=== PATIENT | female | born 1990 | race Caucasian/White ===

== ENCOUNTER 2017-07-01 02:03 | Outpatient (CLI) | payer MEDICAID ==
[~2017-07-01] VITALS: Ht 154.9 cm; Wt 82.1 kg
[~2017-07-01 02:03] MED LIST: ADIPEX-P37.5 MG PO; AMOXICOT500 MG PO; BIRTH CONTROL; CEFDINIR300 M1 PO; CEPHALEXIN500 MG PO; HAIR VITAMINS E1 TAB PO; IBUPROFEN400 MG PO; MACROBID 100MG100 MG PO; MOTRIN400 MG PO; NIFEDIPINE XL 330 MG PO; NOMEDS; NOMEDS *; PERCOCET 5/3251 EACH PO; PHENERGAN 25MG.25 M1 PO; PRENATAL PLUS1 TA1 PO; PRENATAL1 TA1 PO; PRENATAL1 TA3 PO; SERTRALINE 100100 MG PO; TAMIFLU 75MG CA75 MG PO; TESSALON PERLE100 M1 PO; VITAMIN C500 M1 PO; VITAMIN D1000 IU PO; ZANTAC 150150 MG PO; ZOFRAN4 MG PO
[2017-07-01 02:20] VITALS: BP 129/69
[2017-07-01 02:50] LABS: URINE BILIRUBIN - DIPSTICK NEGATIVE (NEG); URINE BLOOD NEGATIVE (NEG)
[2017-07-01 02:58] LABS: URINE SQUAMOUS CELLS OCC #/hpf (0-5)
[2017-07-01 02:59] LABS: AMPHETAMINES/METAMPHETAMINES NEGATIVE ng/mL (<1000)
== END 2017-07-01 04:00 ==
LOC: OB 02:03 → OBOUT 02:03 → OB 02:05 → OBOUT 04:00
PROVIDERS: Obstetrics & Gynecology
DX: O60.02 Preterm labor without delivery, second trimester (principal); Z3A.25 25 weeks gestation of pregnancy; M54.5 Low back pain

== ENCOUNTER → 2017-08-23 | Outpatient (CLI) | payer MEDICAID ==
[2017-08-25 08:49] LABS: HSV 1 IgG, Type Spec <0.91 index (0.00-0.90); HSV 2 IgG, Type Spec <0.91 index (0.00-0.90); Rapid Plasma Reagin, Quant Non Reactive (NonRea<1:1)
[2017-08-25 09:38] LABS: HBsAg Screen Negative (Negative); Hep A Ab, IgM Negative (Negative); Hep B Core Ab, IgM Negative (Negative); Hep C Virus Ab <0.1 (0.0-0.9)
== END ==
LOC: LAB 16:27
PROVIDERS: Nurse Practitioner Obstetrics & Gynecology
DX: Z72.51 High risk heterosexual behavior (principal); Z34.80 Encounter for supervision of other normal pregnancy, unspecified trimester

== ENCOUNTER 2017-08-26 16:10 | Outpatient (CLI) | payer MEDICAID ==
[~2017-08-26] VITALS: Ht 157.5 cm; Wt 86.2 kg
[2017-08-26 16:30] LABS: URINE BILIRUBIN - DIPSTICK NEGATIVE (NEG); URINE BLOOD NEGATIVE (NEG)
[2017-08-26 16:42] VITALS: BP 115/73
== END 2017-08-26 17:25 | disposition home or self-care (01) ==
LOC: OBOUT 16:10 → OB 16:10 → OBOUT 17:25
PROVIDERS: Obstetrics & Gynecology
DX: O36.8130 Decreased fetal movements, third trimester, not applicable or unspecified (principal); Z3A.33 33 weeks gestation of pregnancy; R00.0 Tachycardia, unspecified

== ENCOUNTER 2017-09-25 19:10 | Outpatient (CLI) | payer MEDICAID ==
[~2017-09-25] VITALS: Ht 157.5 cm; Wt 91.2 kg
[2017-09-25 19:30] VITALS: BP 120/71
[2017-09-25] MEDS ORDERED: PRENATAL FORMU1 EAC2 PO (19:36)
[2017-09-25] MEDS ORDERED: IRON TABLETS325 MG PO (19:37)
[2017-09-25] MEDS ORDERED: CEFDINIR300 MG PO (19:38)
[2017-09-25] MEDS ORDERED: ZANTAC 150150 MG PO (19:39)
[2017-09-25 19:54] LABS: URINE BILIRUBIN - DIPSTICK NEGATIVE (NEG); URINE BLOOD NEGATIVE (NEG)
[2017-09-25 19:57] LABS: AMPHETAMINES/METAMPHETAMINES NEGATIVE ng/mL (<1000)
== END 2017-09-25 21:00 | disposition home or self-care (01) ==
LOC: OBOUT 19:10 → OB 19:11 → OBOUT 21:00
PROVIDERS: Obstetrics & Gynecology
DX: O62.9 Abnormality of forces of labor, unspecified (principal); Z3A.37 37 weeks gestation of pregnancy

== ENCOUNTER 2017-10-03 01:57 | Inpatient (IN) | payer MEDICAID ==
[~2017-10-03] VITALS: Ht 157.5 cm; Wt 90.3 kg
[~2017-10-03 01:57] MED LIST changes: +CEFDINIR300 MG PO; +IRON TABLETS325 MG PO; +PRENATAL FORMU1 EAC2 PO
--- OUTSIDE RECORDS SUMMARY | 2017-10-03 02:01 | External Medical Summary Rpt | CCD ---
Author Author , ALEX Organization ALEX Address Unknown Phone [email or web address] Care Team Providers Care Tableau Administrator Name Role Phone Trever Son III, MD, Trever Cordova III, MD Purpose Continuity of Care Document - 02-02-2013 through 2016 Problems Code Diagnosis DOS Provider Status 842.00 842.00 02-02-2013 Jw SPRAIN OF [facility] E849.8 E849.8 02-02-2013 Jw ACCIDENT IN [facility] E927.3 E927.3 02-02-2013 Jw [facility] TRAUMA [facility] REPETITIVE MOTION M79.1 MYALGIA N93.8 OTHER SPECIFIED ABNORMAL UTERINE AND VAGINAL BLEEDING R42 DIZZINESS AND GIDDINESS R51 HEADACHE S00.90XA UNSP SUPERFICIAL INJURY OF UNSP PART OF HEAD, INIT ENCNTR S13.9XXA SPRAIN OF JOINTS AND LIGAMENTS OF UNSP PARTS OF NECK, INIT S50.00XA CONTUSION OF UNSPECIFIED ELBOW, INITIAL ENCOUNTER T88.7XXA UNSP ADVERSE EFFECT OF DRUG OR MEDICAMENT, INIT ENCNTR Z33.1 STATE, INCIDENTAL Z34.90 ENCNTR FOR SUPRVSN OF NORMAL , UNSP, UNSP TRIMESTER Z3A.16 16 WEEKS GESTATION OF Z77.29 CONTACT W AND (SUSPECTED ) EXPOSURE TO OTH HAZARDOUS SUBSTNC 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 Allergies, Adverse Reactions, Alerts Type Drug Allergy Adverse Reaction to Substance Substance Reaction Severity No Known Allergies - Unknown Unknown Nka Vital Signs 02-02-2013 23:53 Name Value Interpretat Reference Comment ion Range Body 98.3 [degF] Temperature BP 66 mm[Hg] Diastolic BP Systolic 109 mm[Hg] Heart 98 /min Rate/Pulse O2% 99 % Respiratory 16 /min Rate 02-02-2013 21:54 Name Value Interpretat Reference Comment ion Range Body 98.1 [degF] Temperature BP 105 mm[Hg] Diastolic BP Systolic 141 mm[Hg] Heart 98 /min Rate/Pulse O2% 100 % Respiratory 16 /min Rate Results Labs Lab Lab Date Result Refere Interp Status Commen Order Detail nces retati t Range on Urine 9-analyte drugs of abuse screening (09-25-2017 19:15) Comment: Collected by nurse? Y Comment: Hold specimen in OE? N Comment: Positive urine drug screen samples are stored for 7 days. Comment: Contact the Lab if confirmation of positives is needed. 11-hydr NEGATIV <50 complet oxy 017 E ed delta-9 19:15 NEGATIV E L tetrahy ng/mL drocann abinol Phencyc = <25 complet lidine 017 NEGATIV ed measure 19:15 E ng/mL ment (mass/v olume) Opiates = <300 complet 017 NEGATIV ed measure 19:15 E ng/mL ment (mass/v olume) Methado = <300 complet ne 017 NEGATIV ed measure 19:15 E ng/mL ment (mass/v olume) Cocaine = <300 complet 017 NEGATIV ed measure 19:15 E ng/g ment (mass/v olume) Serum = 200 complet or 017 NEGATIV ng/mL ed plasma 19:15 E ng/mL benzodi azepine s measure m Urine = <200 complet barbitu 017 NEGATIV ed rates 19:15 E ng/mL measure ment by screen Urine NEGATIV <1000 complet ampheta 017 E ed mine 19:15 NEGATIV screeni E L ng test ng/mL Urinalysis with microscopy (09-25-2017 19:15) Comment: Collected by nurse? Y Comment: Hold specimen in OE? N Urine YELLOW YELLOW complet color 017 YELLOW ed 19:15 L Urine NEGATIV NEG complet blood 017 E ed detecti 19:15 NEGATIV on E L Urine NEGATIV NEG complet total 017 E ed bilirub 19:15 NEGATIV in E L detecti on by test Amorpho TRACE NONE complet us 017 TRACE L ed sedimen 19:15 t detecti on in urine se Urine SL CLEAR complet appeara 017 CLOUDY ed nce 19:15 SL determi CLOUDY nation L Urine 10 - 20 O complet leukocy 017 ed mathwe 19:15 wbc/hpf count (number /volume ) Urine 0.2 0.2 NEG complet urobili 017 L ed nogen 19:15 E.U./dL detecti on by test str Squamou 09-25- 10-20 0-5 complet s 017 10-20 L ed epithel 19:15 #/hpf ial cells detecti on in u Urine = 1.020 1.005-1 complet specifi 017 .030 ed c 19:15 gravity measure ment Urine = NEG complet protein 017 NEGATIV ed 19:15 E mg/dL measure ment by automat ed t Urine = 6.0 5.0-8.5 complet pH 017 ed 19:15 Urine NEGATIV NEG complet nitrite 017 E ed 19:15 NEGATIV detecti E L on by test strip Mucus 1+ 1+ L NEG complet detecti 017 ed on in 19:15 urine sedimen t by lig Urine NEGATIV NEG complet ketones 017 E ed 19:15 NEGATIV detecti E L on by mg/dL automat ed mathew Glucose = NEG complet ur 017 NEGATIV ed test 19:15 E strip Drugs identified in Urine by Screen method (09-25-2017 19:15) Ampheta NEGATIV <1000 complet mine 017 E ed [Presen 19:15 ce] in Urine by Screen method 11-Hydr NEGATIV <50 complet oxy 017 E ed delta-9 19:15 tetrahy drocann abinol [Presen ce] in Unspeci fied specime n Urinalysis dipstick W Reflex Microscopic panel in Urine (09-25-2017 19:15) Amorpho TRACE NONE complet us 017 ed sedimen 19:15 t [Presen ce] in Urine sedimen t by Light microsc opy Epithel 09-25- 10-20 0#/hp complet ial 017 f - ed cells.s 19:15 5#/hp quamous f [Presen ce] in Urine sedimen t by Microsc opy high power field Leukocy 09-25- 10-20 O complet mathew 017 wbc/hpf ed [#/volu 19:15 me] in Urine Urinalysis dipstick W Reflex Microscopic panel in Urine (09-25-2017 19:15) Appeara SL CLEAR complet nce of 017 CLOUDY ed Urine 19:15 Bilirub NEGATIV NEG complet in 017 E ed [Presen 19:15 ce] in Urine by Test strip Erythro NEGATIV NEG complet cytes 017 E ed [Presen 19:15 ce] in Urine Color YELLOW YELLOW complet of 017 ed Urine 19:15 Ketones NEGATIV NEG complet 017 E ed [Presen 19:15 ce] in Urine by Automat ed test strip Mucus 1+ NEG Abnorma complet [Presen 017 l ed ce] in 19:15 Urine sedimen t by Light microsc opy Nitrite NEGATIV NEG complet 017 E ed [Presen 19:15 ce] in Urine by Test strip Urobili 0.2 NEG complet nogen 017 ed [Presen 19:15 ce] in Urine by Test strip Urinalysis with microscopy (08-26-2017) Comment: Collected by nurse? Y Comment: Hold specimen in OE? N Urine = 1.020 1.005-1 complet specifi 017 .030 ed c gravity measure ment Urine = TRACE NEG complet protein 017 mg/dL ed measure ment by automat ed t Urine = 6.5 5.0-8.5 complet pH 017 ed Urine NEGATIV NEG complet nitrite 017 E ed NEGATIV detecti E L on by test strip Mucus 3+ 3+ L OCC complet detecti 017 ed on in urine sedimen t by lig Mucus NEGATIV NEG complet detecti 017 E ed on in NEGATIV urine E L sedimen t by lig Urine NEGATIV NEG complet ketones 017 E ed NEGATIV detecti E L on by mg/dL automat ed mathew Glucose = NEG complet ur 017 NEGATIV ed test E strip Urine DK YELLOW complet color 017 YELLOW ed DK YELLOW L Urine NEGATIV NEG complet blood 017 E ed detecti NEGATIV on E L Urine NEGATIV NEG complet total 017 E ed bilirub NEGATIV in E L detecti on by test Bacteri 3+ 3+ L O complet a 017 ed detecti on in urine sedimen t by Urine SL CLEAR complet appeara 017 CLOUDY ed nce SL determi CLOUDY nation L Urine 3 - 5 O complet leukocy 017 wbc/hpf ed mathew count (number /volume ) Urine 0.2 0.2 NEG complet urobili 017 L ed nogen E.U./dL detecti on by test str Squamou 3-5 3-5 0-5 complet s 017 L ed epithel #/hpf ial cells detecti on in u Urinalysis dipstick W Reflex Microscopic panel in Urine (08-26-2017) Bacteri 3+ O complet a 017 ed [Presen ce] in Urine sedimen t by Light microsc opy Mucus 3+ OCC complet [Presen 017 ed ce] in Urine sedimen t by Light microsc opy Epithel 3-5 0#/hp complet ial 017 f - ed cells.s 5#/hp quamous f [Presen ce] in Urine sedimen t by Microsc opy high power field Leukocy 3-5 O complet mathew 017 wbc/hpf ed [#/volu me] in Urine Urinalysis dipstick W Reflex Microscopic panel in Urine (08-26-2017) Appeara SL CLEAR complet nce of 017 CLOUDY ed Urine Bilirub NEGATIV NEG complet in 017 E ed [Presen ce] in Urine by Test strip Erythro NEGATIV NEG complet cytes 017 E ed [Presen ce] in Urine Color DK YELLOW complet of 017 YELLOW ed Urine Ketones NEGATIV NEG complet 017 E ed [Presen ce] in Urine by Automat ed test strip Mucus NEGATIV NEG complet [Presen 017 E ed ce] in Urine sedimen t by Light microsc opy Nitrite NEGATIV NEG complet 017 E ed [Presen ce] in Urine by Test strip Urobili 0.2 NEG complet nogen 017 ed [Presen ce] in Urine by Test strip RPR titer (08-23-2017 16:29) RPR = Non NonRea< complet titer 017 Reactiv 1:1 ed 16:29 e Comment: Performed at: [facility] Comment: [id number] [place], [place] [id number] Comment: It Web Development Consultant: Pelon Porter PhD, Phone: [phone] HSV 1 and 2-Specific Ab, IgG (08-23-2017 16:29) Serum < 0.91 0.00-0. complet herpes 017 index 90 ed simplex 16:29 virus 1 IgG antibod Comment: Negative <0.91 Comment: Equivocal 0.91 - 1.09 Comment: Positive >1.09 Comment: Note: Negative indicates no antibodies detected to Comment: HSV-1. Equivocal may suggest early infection. If Comment: clinically appropriate, retest at later date. Positive Comment: indicates antibodies detected to HSV-1. Serum < 0.91 0.00-0. complet herpes 017 index 90 ed simplex 16:29 virus 2 IgG antibod Comment: Negative <0.91 Comment: Equivocal 0.91 - 1.09 Comment: Positive >1.09 Comment: Note: Negative indicates no antibodies detected to Comment: HSV-2. Equivocal may suggest early infection. If Comment: clinically appropriate, retest at later date. Positive Comment: indicates antibodies detected to HSV-2. Hepatitis B profile (08-23-2017 16:29) Serum Negativ Negativ complet hepatit 017 e e ed is B 16:29 Negativ virus e L surface antigen Serum < 0.1 0.0-0.9 complet or 017 ed plasma 16:29 hepatit is C virus antibo Comment: INFCE Result Units: s/co ratio Comment: Negative: < 0.8 Comment: Indeterminate: 0.8 - 0.9 Comment: Positive: > 0.9 Comment: Comment: The CDC recommends that a positive HCV antibody result Comment: be followed up with a HCV Nucleic Acid Amplification Comment: test ([id number]). Comment: Performed at: [facility] Comment: [id number], [place] [id number] Comment: It Web Development Consultant: Pelon Porter PhD, Phone: [phone] HBcAb Negativ Negativ complet IgM 017 e e ed 16:29 Negativ e L Hepatit Negativ Negativ complet is A 017 e e ed IgM 16:29 Negativ e L Urinalysis dipstick W Reflex Microscopic panel in Urine (07-29-2017 12:25) Bacteri 4+ O complet a 017 ed [Presen 12:25 ce] in Urine sedimen t by Light microsc opy Mucus 4+ OCC complet [Presen 017 ed ce] in 12:25 Urine sedimen t by Light microsc opy Epithel 10-20 0#/hp complet ial 017 f - ed cells.s 12:25 5#/hp quamous f [Presen ce] in Urine sedimen t by Microsc opy high power field Leukocy 10-20 O complet mathew 017 wbc/hpf ed [#/volu 12:25 me] in Urine Urinalysis dipstick W Reflex Microscopic panel in Urine (07-29-2017 12:25) Appeara SL CLEAR complet nce of 017 CLOUDY ed Urine 12:25 Bilirub NEGATIV NEG complet in 017 E ed [Presen 12:25 ce] in Urine by Test strip Erythro NEGATIV NEG complet cytes 017 E ed [Presen 12:25 ce] in Urine Color YELLOW YELLOW complet of 017 ed Urine 12:25 Ketones NEGATIV NEG complet 017 E ed [Presen 12:25 ce] in Urine by Automat ed test strip Mucus 07-29- NEGATIV NEG complet [Presen 017 E ed ce] in 12:25 Urine sedimen t by Light microsc opy Nitrite 07-29- NEGATIV NEG complet 017 E ed [Presen 12:25 ce] in Urine by Test strip Urobili 07-29-2 0.2 NEG complet nogen 017 ed [Presen 12:25 ce] in Urine by Test strip Drugs identified in Urine by Screen method (07-01-2017 02:20) Ampheta NEGATIV <1000 complet mine 017 E ed [Presen 02:20 ce] in Urine by Screen method 11-Hydr NEGATIV <50 complet oxy 017 E ed delta-9 02:20 tetrahy drocann abinol [Presen ce] in Unspeci fied specime n Urinalysis dipstick W Reflex Microscopic panel in Urine (04-23-2017 19:50) Amorpho TRACE NONE complet us 017 ed sedimen 19:50 t [Presen ce] in Urine sedimen t by Light microsc opy Epithel 3-5 0#/hp complet ial 017 f - ed cells.s 19:50 5#/hp quamous f [Presen ce] in Urine sedimen t by Microsc opy high power field Urinalysis dipstick W Reflex Microscopic panel in Urine (04-23-2017 19:50) Appeara CLEAR CLEAR complet nce of 017 ed Urine 19:50 Bilirub NEGATIV NEG complet in 017 E ed [Presen 19:50 ce] in Urine by Test strip Erythro 04-23- NEGATIV NEG complet cytes 017 E ed [Presen 19:50 ce] in Urine Color YELLOW YELLOW complet of 017 ed Urine 19:50 Ketones 04-23- NEGATIV NEG complet 017 E ed [Presen 19:50 ce] in Urine by Automat ed test strip Mucus 04-23- NEGATIV NEG complet [Presen 017 E ed ce] in 19:50 Urine sedimen t by Light microsc opy Nitrite 04-23- NEGATIV NEG complet 017 E ed [Presen 19:50 ce] in Urine by Test strip Urobili 04-23-2 0.2 NEG complet nogen 017 ed [Presen 19:50 ce] in Urine by Test strip Procedures Procedure DOS Code Location Performer Comment APPLICATI 93.54 Trever Cordova [facility] Encounters Encounter Start End Date Code Location Performer Type Date Emergency SHELDON Cordova (ER) 3 22:04 3 23:53 [facility] Trever Guardado
--- OUTSIDE RECORDS SUMMARY | 2017-10-03 02:01 | External Medical Summary Rpt | CCD ---
Demographics Preferred Language Estonian Marital Status Unknown Christian Affiliation Unknown Race Unknown Ethnic Group Unknown Author Author , ALEX JOHNSON Address Unknown Phone Immunization No patient found.
--- OUTSIDE RECORDS SUMMARY | 2017-10-03 02:01 | External Medical Summary Rpt | CCD ---
Demographics Preferred Language Ghanaian Marital Status Unknown Hindu Affiliation Unknown Race Unknown Ethnic Group Unknown Author Author , ALEX JOHNSON Address Unknown Phone Immunization No patient found.
--- OUTSIDE RECORDS SUMMARY | 2017-10-03 02:01 | External Medical Summary Rpt | CCD ---
Author Author , ALEX Organization ALEX Address Unknown Phone [email or web address] Care Team Providers Care Stitcher Hand Name Role Phone Trever Son III, MD, Trever Cordova III, MD Purpose Continuity of Care Document - 02-02-2013 through 2016 Problems Code Diagnosis DOS Provider Status 842.00 842.00 02-02-2013 Jw SPRAIN OF [facility] E849.8 E849.8 02-02-2013 Jw ACCIDENT IN [facility] E927.3 E927.3 02-02-2013 Jw [facility] TRAUMA [facility] REPETITIVE MOTION M79.1 MYALGIA N93.8 OTHER SPECIFIED [...] - 20 O complet leukocy 017 ed mathew 19:15 wbc/hpf count (number /volume ) Urine [...] 1:1 ed 16:29 e Comment: Performed at: [facility] Comment: [id number], [place] [id number] Comment: Senior Storage Administrator: Pelon Porter PhD, Phone: [phone] HSV 1 and 2-Specific Ab, IgG (08-23-2017 [...] a HCV Nucleic Acid Amplification Comment: test ([id number]). Comment: Performed at: [facility] Comment: [id number], [place] [id number] Comment: Senior Storage Administrator: Pelon Porter PhD, Phone: [phone] HBcAb Negativ Negativ complet IgM 017 e [...] Location Performer Comment APPLICATI 93.54 Trever Cordova [facility] Encounters Encounter Start End Date Code Location Performer Type Date Emergency SHELDON Cordova (ER) 3 22:04 3 23:53 [facility] Trever Guardado
--- OUTSIDE RECORDS SUMMARY | 2017-10-03 02:02 | External Medical Summary Rpt ---
Author Author [facility] Vidal, [employer] Address Unknown Phone Unavailable Results Drugs identified in Urine by Screen method Observa Value Referen Units Interpr Notes Date tion ce etation Range Collected by nurse? Y Hold specimen in OE? N Positive urine drug screen samples are stored for 7 days. Contact the Lab if confirmation of positives is needed. Ampheta NEGATIV <1000 ng/mL No No Sep 25 mine E informa informa 2016 [Presen tion in tion in 7:15 PM ce] in source source Urine data data by Screen method Barbitura <200 ng/mL No Sep 25 mathew informati informati 2017 7:15 [Mass/vol on in on in PM ume] in source source Urine by data data Screen method Benzodiaz 200 ng/mL ng/mL No No Sep 25 epines informati informati 2017 7:15 [Mass/vol on in on in PM ume] in source source Serum or data data Plasma by Screen method Cocaine <300 ng/g No No Sep 25 [Mass/vol informati informati 2017 7:15 ume] in on in on in PM Unspecifi source source ed data data specimen Methadone <300 ng/mL No Sep 25 informati informati 2016 7:15 [Mass/vol on in on in PM ume] in source source Unspecifi data data ed specimen Opiates <300 ng/mL No No Sep 25 [Mass/vol informati informati 2016 7:15 ume] in on in on in PM Unspecifi source source ed data data specimen Phencycli <25 ng/mL No No Sep 25 dine informati informati 2017 7:15 [Mass/vol on in on in PM ume] in source source Unspecifi data data ed specimen 11-Hydr NEGATIV <50 ng/mL No No Sep 25 oxy E informa informa 2017 delta-9 tion in tion in 7:15 PM source source tetrahy data data drocann abinol [Presen ce] in Unspeci fied specime n Urinalysis dipstick W Reflex Microscopic panel in Urine Observa Value Referen Units Interpr Notes Date tion ce etation Range Collected by nurse? Y Hold specimen in OE? N Appeara SL CLEAR No No No Sep 25 nce of CLOUDY informa informa informa 2017 Urine tion in tion in tion in 7:15 PM source source source data data data Amorpho TRACE NONE No No No Sep 25 us informa informa informa 2017 sedimen tion in tion in tion in 7:15 PM t source source source [Presen data data data ce] in Urine sedimen t by Light microsc opy Bilirub NEGATIV NEG No No No Sep 25 in E informa informa informa 2016 [Presen tion in tion in tion in 7:15 PM ce] in source source source Urine data data data by Test strip Erythro NEGATIV NEG No No No Sep 25 cytes E informa informa informa 2016 [Presen tion in tion in tion in 7:15 PM ce] in source source source Urine data data data Color YELLOW YELLOW No No No Sep 25 of informa informa informa 2016 Urine tion in tion in tion in 7:15 PM source source source data data data Glucose NEG No No No Sep 25 [Mass/vol informati informati informati 2017 7:15 ume] in on in on in on in PM Urine by source source source Test data data data strip Ketones NEGATIV NEG mg/dL No No Sep 25 E informa informa 2016 [Presen tion in tion in 7:15 PM ce] in source source Urine data data by Automat ed test strip Mucus 1+ NEG No Abnorma No Sep 25 [Presen informa l informa 2016 ce] in tion in tion in 7:15 PM Urine source source sedimen data data t by Light microsc opy Nitrite NEGATIV NEG No No No Sep 25 E informa informa informa 2016 [Presen tion in tion in tion in 7:15 PM ce] in source source source Urine data data data by Test strip pH of 5.0 - 8.5 No Normal No Sep 25 Urine informati informati 2017 7:15 on in on in PM source source data data Protein NEG mg/dL No No Nov 12 [Mass/vol informati informati 2017 7:15 ume] in on in on in PM Urine by source source Automated data data test strip Specific 1.005 - No Normal No Sep 25 gravity 1.030 informati informati 2017 7:15 of Urine on in on in PM source source data data Epithel 10-20 0 - 5 #/hpf No No Sep 25 ial informa informa 2017 cells.s tion in tion in 7:15 PM quamous source source data data [Presen ce] in Urine sedimen t by Microsc opy high power field Urobili 0.2 NEG E.U./dL No No Sep 25 nogen informa informa 2016 [Presen tion in tion in 7:15 PM ce] in source source Urine data data by Test strip Leukocy [10 O wbc/hpf No No Sep 25 mathew wbc/hpf informa informa 2016 [#/volu ; 20 tion in tion in 7:15 PM me] in wbc/hpf source source Urine ] data data Urinalysis dipstick W Reflex Microscopic panel in Urine Observa Value Referen Units Interpr Notes Date tion ce etation Range Collected by nurse? Y Hold specimen in OE? N Appeara SL CLEAR No No No Sep 25 nce of CLOUDY informa informa informa 2017 Urine tion in tion in tion in 7:15 PM source source source data data data Bilirub NEGATIV NEG No No No Sep 25 in E informa informa informa 2016 [Presen tion in tion in tion in 7:15 PM ce] in source source source Urine data data data by Test strip Erythro NEGATIV NEG No No No Sep 25 cytes E informa informa informa 2016 [Presen tion in tion in tion in 7:15 PM ce] in source source source Urine data data data Color YELLOW YELLOW No No No Sep 25 of informa informa informa 2017 Urine tion in tion in tion in 7:15 PM source source source data data data Glucose NEG No No No Sep 25 [Mass/vol informati informati informati 2016 7:15 ume] in on in on in on in PM Urine by source source source Test data data data strip Ketones NEGATIV NEG mg/dL No No Sep 25 E informa informa 2016 [Presen tion in tion in 7:15 PM ce] in source source Urine data data by Automat ed test strip Mucus 1+ NEG No Abnorma No Sep 25 [Presen informa l inform2016 ce] in tion in tion in 7:15 PM Urine source source sedimen data data t by Light microsc opy Nitrite NEGATIV NEG No No No Sep 25 E informa informa informa 2016 [Presen tion in tion in tion in 7:15 PM ce] in source source source Urine data data data by Test strip pH of 5.0 - 8.5 No Normal No Sep 12 Urine informati informati 2016 7:15 on in on in PM source source data data Protein NEG mg/dL No No Sep 25 [Mass/vol informati informati 2016 7:15 ume] in on in on in PM Urine by source source Automated data data test strip Specific 1.005 - No Normal No Sep 25 gravity 1.030 informati informati 2016 7:15 of Urine on in on in PM source source data data Urobili 0.2 NEG E.U./dL No No Sep 25 nogen informa informa 2016 [Presen tion in tion in 7:15 PM ce] in source source Urine data data by Test strip Urinalysis dipstick W Reflex Microscopic panel in Urine Observa Value Referen Units Interpr Notes Date tion ce etation Range Collected by nurse? Y Hold specimen in OE? N Appeara SL CLEAR No No No Aug 26 nce of CLOUDY informa informa informa 2016 Urine tion in tion in tion in source source source data data data Bacteri 3+ O No No No Aug 26 a informa informa informa 2016 [Presen tion in tion in tion in ce] in source source source Urine data data data sedimen t by Light microsc opy Bilirub NEGATIV NEG No No No Aug 26 in E informa informa informa 2016 [Presen tion in tion in tion in ce] in source source source Urine data data data by Test strip Erythro NEGATIV NEG No No No Aug 26 cytes E informa informa informa 2016 [Presen tion in tion in tion in ce] in source source source Urine data data data Color DK YELLOW No No No Aug 26 of YELLOW informa informa informa 2017 Urine tion in tion in tion in source source source data data data Glucose NEG No No No Aug 26 [Mass/vol informati informati informati 2016 ume] in on in on in on in Urine by source source source Test data data data strip Ketones NEGATIV NEG mg/dL No No Aug 26 E informa informa 2017 [Presen tion in tion in ce] in source source Urine data data by Automat ed test strip Mucus NEGATIV NEG No No No Aug 26 [Presen E informa informa informa 2016 ce] in tion in tion in tion in Urine source source source sedimen data data data t by Light microsc opy Mucus 3+ OCC No No No Aug 26 [Presen informa informa informa 2016 ce] in tion in tion in tion in Urine source source source sedimen data data data t by Light microsc opy Nitrite NEGATIV NEG No No No Aug 26 E informa informa informa 2016 [Presen tion in tion in tion in ce] in source source source Urine data data data by Test strip pH of 5.0 - 8.5 No Normal No Aug 26 Urine informati informati 2017 on in on in source source data data Protein NEG mg/dL High No Aug 26 [Mass/vol informati 2016 ume] in on in Urine by source Automated data test strip Specific 1.005 - No Normal No Aug 26 gravity 1.030 informati informati 2016 of Urine on in on in source source data data Epithel 3-5 0 - 5 #/hpf No No Aug 26 ial informa informa 2017 cells.s tion in tion in quamous source source data data [Presen ce] in Urine sedimen t by Microsc opy high power field Urobili 0.2 NEG E.U./dL No No Aug 26 nogen informa informa 2016 [Presen tion in tion in ce] in source source Urine data data by Test strip Leukocy [3 O wbc/hpf No No Aug 26 mathew wbc/hpf informa informa 2016 [#/volu ; 5 tion in tion in me] in wbc/hpf source source Urine ] data data Urinalysis dipstick W Reflex Microscopic panel in Urine Observa Value Referen Units Interpr Notes Date tion ce etation Range Collected by nurse? Y Hold specimen in OE? N Appeara SL CLEAR No No No Aug 26 nce of CLOUDY informa informa informa 2017 Urine tion in tion in tion in source source source data data data Bilirub NEGATIV NEG No No No Aug 26 in E informa informa informa 2016 [Presen tion in tion in tion in ce] in source source source Urine data data data by Test strip Erythro NEGATIV NEG No No No Aug 26 cytes E informa informa informa 2016 [Presen tion in tion in tion in ce] in source source source Urine data data data Color DK YELLOW No No No Aug 26 of YELLOW informa informa informa 2016 Urine tion in tion in tion in source source source data data data Glucose NEG No No No Aug 26 [Mass/vol informati informati informati 2016 ume] in on in on in on in Urine by source source source Test data data data strip Ketones NEGATIV NEG mg/dL No No Aug 26 E informa informa 2016 [Presen tion in tion in ce] in source source Urine data data by Automat ed test strip Mucus NEGATIV NEG No No No Aug 26 [Presen E informa informa informa 2016 ce] in tion in tion in tion in Urine source source source sedimen data data data t by Light microsc opy Nitrite NEGATIV NEG No No No Aug 26 E informa informa informa 2016 [Presen tion in tion in tion in ce] in source source source Urine data data data by Test strip pH of 5.0 - 8.5 No Normal No Aug 26 Urine informati informati 2017 on in on in source source data data Protein NEG mg/dL High No Aug 26 [Mass/vol informati 2016 ume] in on in Urine by source Automated data test strip Specific 1.005 - No Normal No Aug 26 gravity 1.030 informati informati 2016 of Urine on in on in source source data data Urobili 0.2 NEG E.U./dL No No Aug 26 nogen informa informa 2016 [Presen tion in tion in ce] in source source Urine data data by Test strip Urinalysis dipstick W Reflex Microscopic panel in Urine Observa Value Referen Units Interpr Notes Date tion ce etation Range Collected by nurse? N Hold specimen in OE? Y Appeara SL CLEAR No No No Sep 15 nce of CLOUDY informa informa informa 2017 Urine tion in tion in tion in 12:25 source source source PM data data data Bacteri 4+ O No No No Sep 15 a informa informa informa 2017 [Presen tion in tion in tion in 12:25 ce] in source source source PM Urine data data data sedimen t by Light microsc opy Bilirub NEGATIV NEG No No No Sep 15 in E informa informa informa 2017 [Presen tion in tion in tion in 12:25 ce] in source source source PM Urine data data data by Test strip Erythro NEGATIV NEG No No No Sep 15 cytes E informa informa informa 2017 [Presen tion in tion in tion in 12:25 ce] in source source source PM Urine data data data Color YELLOW YELLOW No No No Sep 15 of informa informa informa 2017 Urine tion in tion in tion in 12:25 source source source PM data data data Glucose NEG No No No Sep 15 [Mass/vol informati informati informati 2017 ume] in on in on in on in 12:25 PM Urine by source source source Test data data data strip Ketones NEGATIV NEG mg/dL No No Sep 15 E informa informa 2017 [Presen tion in tion in 12:25 ce] in source source PM Urine data data by Automat ed test strip Mucus NEGATIV NEG No No No Sep 15 [Presen E informa informa informa 2017 ce] in tion in tion in tion in 12:25 Urine source source source PM sedimen data data data t by Light microsc opy Mucus 4+ OCC No No No Sep 15 [Presen informa informa informa 2017 ce] in tion in tion in tion in 12:25 Urine source source source PM sedimen data data data t by Light microsc opy Nitrite NEGATIV NEG No No No Sep 15 E informa informa informa 2017 [Presen tion in tion in tion in 12:25 ce] in source source source PM Urine data data data by Test strip pH of 5.0 - 8.5 No Normal No Sep 15 Urine informati informati 2017 on in on in 12:25 PM source source data data Protein NEG mg/dL No No Sep 15 [Mass/vol informati informati 2017 ume] in on in on in 12:25 PM Urine by source source Automated data data test strip Specific 1.005 - No Normal No Sep 15 gravity 1.030 informati informati 2017 of Urine on in on in 12:25 PM source source data data Epithel 10-20 0 - 5 #/hpf No No Sep 15 ial informa informa 2017 cells.s tion in tion in 12:25 quamous source source PM data data [Presen ce] in Urine sedimen t by Microsc opy high power field Urobili 0.2 NEG E.U./dL No No Sep 15 nogen informa informa 2017 [Presen tion in tion in 12:25 ce] in source source PM Urine data data by Test strip Leukocy [10 O wbc/hpf No No Sep 15 mathew wbc/hpf informa informa 2017 [#/volu ; 20 tion in tion in 12:25 me] in wbc/hpf source source PM Urine ] data data Urinalysis dipstick W Reflex Microscopic panel in Urine Observa Value Referen Units Interpr Notes Date tion ce etation Range Collected by nurse? N Hold specimen in OE? Y Appeara SL CLEAR No No No Sep 15 nce of CLOUDY informa informa informa 2017 Urine tion in tion in tion in 12:25 source source source PM data data data Bilirub NEGATIV NEG No No No Sep 15 in E informa informa informa 2016 [Presen tion in tion in tion in 12:25 ce] in source source source PM Urine data data data by Test strip Erythro NEGATIV NEG No No No Sep 15 cytes E informa informa informa 2017 [Presen tion in tion in tion in 12:25 ce] in source source source PM Urine data data data Color YELLOW YELLOW No No No Sep 15 of informa informa informa 2017 Urine tion in tion in tion in 12:25 source source source PM data data data Glucose NEG No No No Sep 15 [Mass/vol informati informati informati 2017 ume] in on in on in on in 12:25 PM Urine by source source source Test data data data strip Ketones NEGATIV NEG mg/dL No No Sep 15 E informa informa 2017 [Presen tion in tion in 12:25 ce] in source source PM Urine data data by Automat ed test strip Mucus NEGATIV NEG No No No Sep 15 [Presen E informa informa informa 2016 ce] in tion in tion in tion in 12:25 Urine source source source PM sedimen data data data t by Light microsc opy Nitrite NEGATIV NEG No No No Sep 15 E informa informa informa 2016 [Presen tion in tion in tion in 12:25 ce] in source source source PM Urine data data data by Test strip pH of 5.0 - 8.5 No Normal No Sep 15 Urine informati informati 2017 on in on in 12:25 PM source source data data Protein NEG mg/dL No No Sep 15 [Mass/vol informati informati 2016 ume] in on in on in 12:25 PM Urine by source source Automated data data test strip Specific 1.005 - No Normal No Sep 15 gravity 1.030 informati informati 2016 of Urine on in on in 12:25 PM source source data data Urobili 0.2 NEG E.U./dL No No Sep 15 nogen informa informa 2016 [Presen tion in tion in 12:25 ce] in source source PM Urine data data by Test strip Drugs identified in Urine by Screen method Observa Value Referen Units Interpr Notes Date tion ce etation Range Collected by nurse? Y Hold specimen in OE? N Positive urine drug screen samples are stored for 7 days. Contact the Lab if confirmation of positives is needed. Ampheta NEGATIV <1000 ng/mL No No Jul 01 mine E informa informa 2016 [Presen tion in tion in 2:20 AM ce] in source source Urine data data by Screen method Barbitura <200 ng/mL No No Jul 01 mathew informati informati 2016 2:20 [Mass/vol on in on in AM ume] in source source Urine by data data Screen method Benzodiaz 200 ng/mL ng/mL No No Jul 01 epines informati informati 2017 2:20 [Mass/vol on in on in AM ume] in source source Serum or data data Plasma by Screen method Cocaine <300 ng/g No No Jul 01 [Mass/vol informati informati 2016 2:20 ume] in on in on in AM Unspecifi source source ed data data specimen Methadone <300 ng/mL No No Jul 01 informati informati 2017 2:20 [Mass/vol on in on in AM ume] in source source Unspecifi data data ed specimen Opiates <300 ng/mL No No Jul 01 [Mass/vol informati informati 2017 2:20 ume] in on in on in AM Unspecifi source source ed data data specimen Phencycli <25 ng/mL No No Jul 01 dine informati informati 2017 2:20 [Mass/vol on in on in AM ume] in source source Unspecifi data data ed specimen 11-Hydr NEGATIV <50 ng/mL No No Jul 01 oxy E informa informa 2017 delta-9 tion in tion in 2:20 AM source source tetrahy data data drocann abinol [Presen ce] in Unspeci fied specime n Fibronectin. [Mass/volume] in Vaginal fluid Observa Value Referen Units Interpr Notes Date tion ce etation Range Fibronect NEGATIVE No No Jul 01 in. informati informati FIBRONECT 2017 2:20 [Mass/vol on in on in IN AM ume] in source source INTERPRET Vaginal data data ATION:Sym fluid ptomatic women: There is an increased risk of deliveryw ithin 14 days for positive results obtained between 24weeks and 34 weeks,6 days of gestation .Asymptom atic women: There is an increased risk of deliverya t less than 35 weeks for positive results obtained wnanysc86 weeks and 30 weeks,6 days of gestation . AFP Tetra Observa Value Referen Units Interpr Notes Date tion ce etation Range Results NEGATIV No No No FOR May 10 E informa informa informa DOWN 2017 tion in tion in tion in SYNDROM 3:47 PM source source source E, data data data TRISOMY 18, AND OPEN SPINA BIFIDA Alpha-1-F No No No No May 10 etoprotei informati informati informati informati 2017 3:47 n on in on in on in on in PM [Mass/vol source source source source ume] in data data data data Serum or Plasma Alpha-1-F No No No No May 10 etoprotei informati informati informati informati 2017 3:47 n on in on in on in on in PM [Multiple source source source source of the data data data data median] adjusted in Serum or Plasma Choriogon No No No No May 10 adotropin informati informati informati informati 2016 3:47 on in on in on in on in PM [Units/vo source source source source lume] in data data data data Serum or Plasma Choriogon No No No No May 10 adotropin informati informati informati informati 2016 3:47 on in on in on in on in PM [Multiple source source source source of the data data data data median] adjusted in Serum or Plasma Estriol.u No No No No May 10 nconjugat informati informati informati informati 2016 3:47 ed on in on in on in on in PM [Mass/vol source source source source ume] in data data data data Serum or Plasma Estriol.u No No No No May 10 nconjugat informati informati informati informati 2016 3:47 ed on in on in on in on in PM [Multiple source source source source of the data data data data median] adjusted in Serum or Plasma Inhibin A No No No No May 10 informati informati informati informati 2016 3:47 [Mass/vol on in on in on in on in PM ume] in source source source source Serum data data data data Inhibin A No No No No May 10 informati informati informati informati 2016 3:47 [Multiple on in on in on in on in PM of the source source source source median] data data data data adjusted in Serum Neural No No No No May 10 tube informati informati informati informati 2016 3:47 defect on in on in on in on in PM risk in source source source source Fetus data data data data Trisomy No No No No May 10 risk informati informati informati informati 2016 3:47 in Fetus on in on in on in on in PM source source source source data data data data Second SEE No No No No May 10 trimest BELOW: informa informa informa informa 2017 er quad tion in tion in tion in tion in 3:47 PM source source source source materna data data data data l screen [interp retatio n] in Serum Narrati ve Trisomy No No No No May 10 risk informati informati informati informati 2017 3:47 based on on in on in on in on in PM maternal source source source source age in data data data data Fetus Trisomy No No No No May 10 18 risk informati informati informati informati 2017 3:47 in Fetus on in on in on in on in PM source source source source data data data data Trisomy No No No No May 10 18 risk informati informati informati informati 2017 3:47 based on on in on in on in on in PM maternal source source source source age in data data data data Fetus Second NEGATIV No No No No May 10 trimest E informa informa informa informa 2017 er quad tion in tion in tion in tion in 3:47 PM source source source source materna data data data data l screen [interp retatio n] in Serum Narrati ve Gestation No No No No May 10 al age informati informati informati informati 2017 3:47 on in on in on in on in PM source source source source data data data data Gestati VINH No No No No May 10 onal informa informa informa informa 2017 age 16 tion in tion in tion in tion in 3:47 PM method source source source source data data data data Age at No No No No May 10 delivery informati informati informati informati 2017 3:47 on in on in on in on in PM source source source source data data data data Mother' CAUCASI No No No No May 10 s race AN informa informa informa informa 2017 tion in tion in tion in tion in 3:47 PM source source source source data data data data Body No No No No May 10 weight informati informati informati informati 2017 3:47 on in on in on in on in PM source source source source data data data data Insulin NOT No No No No May 10 PROVIDE informa informa informa informa 2017 depende D tion in tion in tion in tion in 3:47 PM nt source source source source diabete data data data data s mellitu s [Presen ce] Multipl NO No No No No May 10 e informa informa informa informa 2017 preganc tion in tion in tion in tion in 3:47 PM y source source source source data data data data Comprehensive metabolic 2000 panel in Serum or Plasma Observa Value Referen Units Interpr Notes Date tion ce etation Range Albumin/G 1.1 - 1.8 No Low No Joseluis 10 lobulin informati informati 2017 8:10 [Mass on in on in PM ratio] in source source Serum or data data Plasma Albumin 3.4 - 5.0 gm/dL Normal No Apr 10 [Mass/vol informati 2016 8:10 ume] in on in PM Serum or source Plasma data Alkaline 46 - 116 U/L Normal No Apr 23 phosphata informati 2016 8:10 se on in PM [Enzymati source c data activity/ volume] in Serum or Plasma Bilirubin 0.2 - 1.0 mg/dL Normal No Apr 10 .total informati 2017 8:10 [Mass/vol on in PM ume] in source Serum or data Plasma Urea 7 - 18 mg/dL Normal No Apr 23 nitrogen informati 2017 8:10 [Mass/vol on in PM ume] in source Serum or data Plasma Calcium 8.5 - mg/dL Normal No Apr 23 [Mass/vol 10.1 informati 2017 8:10 ume] in on in PM Serum or source Plasma data Chloride 98 - 107 mmoL/L Normal No Apr 23 [Moles/vo informati 2017 8:10 lume] in on in PM Serum or source Plasma data Carbon 21.0 - mmoL/L Normal No Apr 23 dioxide, 32.0 informati 2017 8:10 total on in PM [Moles/vo source lume] in data Serum or Plasma Creatinin 0.55 - mg/dL Normal No Apr 10 e 1.02 informati 2017 8:10 [Mass/vol on in PM ume] in source Serum or data Plasma Creatinin 50 - 200 ML/MIN Normal No Apr 23 e renal informati 2016 8:10 clearance on in PM source predicted data by Cockcroft -Gault formula Estimated 59- ML/MIN No REFERENCE Joseluis 10 informati RANGE: 2017 8:10 glomerula on in >60 PM r source ML/MIN/1. filtratio data 73 SQUARE n rate METERSIf (GF this patient is -A merican, then multiply theresult by 1.210. Globulin 1.3 - 3.2 gm/dL High No Apr 10 [Mass/vol informati 2016 8:10 ume] in on in PM Serum source data Glucose 74 - 106 mg/dL High No Apr 10 [Mass/vol informati 2017 8:10 ume] in on in PM Serum or source Plasma data Potassium 3.5 - 5.1 mmoL/L Low No Apr 23 inform2016 8:10 [Moles/vo on in PM lume] in source Serum or data Plasma Sodium 136 - 145 mmoL/L Normal No Apr 10 [Moles/vo 2016 8:10 lume] in on in PM Serum or source Plasma data Aspartate 15 - 37 U/L Low No Apr 23 inform2016 8:10 aminotran on in PM sferase source [Enzymati data c activity/ volume] in Serum or Plasma Alanine 12 - 78 U/L Normal No Apr 23 aminotran informati 2016 8:10 sferase on in PM [Enzymati source c data activity/ volume] in Serum or Plasma Protein 6.4 - 8.2 gm/dL Normal Apr 23 [Mass/vol informati 2016 8:10 ume] in on in PM Serum or source Plasma data CBC W Auto Differential panel in Blood Observa Value Referen Units Interpr Notes Date tion ce etation Range Basophils 0 - 0.2 K/MM3 Normal No Apr 23 inform2016 8:10 [#/volume on in PM ] in source Blood by data Automated count Basophils 0.1 - 2.0 % Normal No Apr 10 /100 informati 2017 8:10 leukocyte on in PM s in source Blood by data Automated count Eosinophi 0.0 - 0.4 K/mm3 Normal No Apr 23 ls 2016 8:10 [#/volume on in PM ] in source Blood by data Automated count Eosinophi 0.1 - % Normal No Apr 23 ls/100 12.0 informati 2016 8:10 leukocyte on in PM s in source Blood by data Automated count Granulocy 1.8 - 7.8 K/mm3 High No Apr 10 mathew informati 2016 8:10 [#/volume on in PM ] in source Blood by data Automated count Granulocy 37.0 - % Normal No Apr 10 mathew/100 80.0 informati 2016 8:10 leukocyte on in PM s in source Blood by data Automated count Hematocri 37.0 - % Normal No Apr 23 t [Volume 47.0 informati 2016 8:10 on in PM Fraction] source of Blood data Hemoglobi 12.2 - g/dL Normal No Apr 23 n 16.2 informati 2016 8:10 [Mass/vol on in PM ume] in source Blood data Lymphocyt 0.7 - 4.5 K/mm3 Normal No Apr 10 es informati 2016 8:10 [#/volume on in PM ] in source Unspecifi data ed specimen by Automated count Lymphocyt 10 - 50.0 % Normal No Apr 10 es informati 2016 8:10 [#/volume on in PM ] in source Unspecifi data ed specimen by Automated count Erythrocy 27 - 31.2 pg Normal No Apr 23 te mean informati 2016 8:10 corpuscul on in PM ar source hemoglobi data n [Entitic mass] Erythrocy 31.8 - g/dl Normal No Apr 23 te mean 35.4 informati 2016 8:10 corpuscul on in PM ar source hemoglobi data n concentra tion [Mass/vol ume] by Automated count Erythrocy 82.2 - fl Normal No Apr 23 te mean 97.8 informati 2016 8:10 corpuscul on in PM ar volume source [Entitic data volume] by Automated count Monocytes 0.1 - 1.0 K/mm3 Normal No Apr 10 informati 2016 8:10 [#/volume on in PM ] in source Blood by data Automated count Monocytes 1.7 - 9.3 % Normal No Joseluis 10 /100 informati 2016 8:10 leukocyte on in PM s in source Blood by data Automated count Platelet 7.4 - fl Normal No Apr 23 mean 10.4 informati 2016 8:10 volume on in PM [Entitic source volume] data in Blood by Automated count Platelets 142 - 424 K/mm3 Normal No Apr 10 informati 2016 8:10 [#/volume on in PM ] in source Blood data Erythrocy 4.2 - 5.4 M/mm3 Normal No Apr 10 mathew informati 2016 8:10 [#/volume on in PM ] in source Amniotic data fluid Erythrocy 11.5 - % Normal No Apr 23 te 17.5 informati 2016 8:10 distribut on in PM ion width source [Entitic data volume] by Automated count Leukocyte 4.8 - K/MM3 High No Apr 10 s 10.8 informati 2016 8:10 [#/volume on in PM ] in source Blood data Urinalysis dipstick W Reflex Microscopic panel in Urine Observa Value Referen Units Interpr Notes Date tion ce etation Range Appeara CLEAR CLEAR No No No Apr 10 nce of informa informa informa 2017 Urine tion in tion in tion in 7:50 PM source source source data data data Amorpho TRACE NONE No No No Apr 23 us informa informa informa 2017 sedimen tion in tion in tion in 7:50 PM t source source source [Presen data data data ce] in Urine sedimen t by Light microsc opy Bilirub NEGATIV NEG No No No Apr 23 in E informa informa informa 2017 [Presen tion in tion in tion in 7:50 PM ce] in source source source Urine data data data by Test strip Erythro NEGATIV NEG No No No Apr 23 cytes E informa informa informa 2017 [Presen tion in tion in tion in 7:50 PM ce] in source source source Urine data data data Color YELLOW YELLOW No No No Apr 23 of informa informa informa 2017 Urine tion in tion in tion in 7:50 PM source source source data data data Glucose NEG No No No Apr 23 [Mass/vol informati informati informati 2017 7:50 ume] in on in on in on in PM Urine by source source source Test data data data strip Ketones NEGATIV NEG mg/dL No No Apr 23 E informa informa 2017 [Presen tion in tion in 7:50 PM ce] in source source Urine data data by Automat ed test strip Mucus NEGATIV NEG No No No Apr 23 [Presen E informa informa informa 2016 ce] in tion in tion in tion in 7:50 PM Urine source source source sedimen data data data t by Light microsc opy Nitrite NEGATIV NEG No No No Apr 23 E informa informa informa 2017 [Presen tion in tion in tion in 7:50 PM ce] in source source source Urine data data data by Test strip pH of 5.0 - 8.5 No Normal No Apr 10 Urine informati informati 2017 7:50 on in on in PM source source data data Protein NEG mg/dL No No Apr 10 [Mass/vol informati informati 2017 7:50 ume] in on in on in PM Urine by source source Automated data data test strip Specific 1.005 - No Normal No Apr 23 gravity 1.030 informati informati 2017 7:50 of Urine on in on in PM source source data data Epithel 3-5 0 - 5 #/hpf No No Apr 23 ial informa informa 2017 cells.s tion in tion in 7:50 PM quamous source source data data [Presen ce] in Urine sedimen t by Microsc opy high power field Urobili 0.2 NEG E.U./dL No No Apr 23 nogen informa informa 2016 [Presen tion in tion in 7:50 PM ce] in source source Urine data data by Test strip Urinalysis dipstick W Reflex Microscopic panel in Urine Observa Value Referen Units Interpr Notes Date tion ce etation Range Appeara CLEAR CLEAR No No No Apr 23 nce of informa informa informa 2017 Urine tion in tion in tion in 7:50 PM source source source data data data Bilirub NEGATIV NEG No No No Apr 23 in E informa informa informa 2016 [Presen tion in tion in tion in 7:50 PM ce] in source source source Urine data data data by Test strip Erythro NEGATIV NEG No No No Apr 23 cytes E informa informa informa 2016 [Presen tion in tion in tion in 7:50 PM ce] in source source source Urine data data data Color YELLOW YELLOW No No No Apr 23 of informa informa informa 2017 Urine tion in tion in tion in 7:50 PM source source source data data data Glucose NEG No No No Apr 23 [Mass/vol informati informati informati 2017 7:50 ume] in on in on in on in PM Urine by source source source Test data data data strip Ketones NEGATIV NEG mg/dL No No Apr 23 E informa informa 2017 [Presen tion in tion in 7:50 PM ce] in source source Urine data data by Automat ed test strip Mucus NEGATIV NEG No No No Apr 23 [Presen E informa informa informa 2017 ce] in tion in tion in tion in 7:50 PM Urine source source source sedimen data data data t by Light microsc opy Nitrite NEGATIV NEG No No No Apr 23 E informa informa informa 2017 [Presen tion in tion in tion in 7:50 PM ce] in source source source Urine data data data by Test strip pH of 5.0 - 8.5 No Normal No Apr 23 Urine informati informati 2017 7:50 on in on in PM source source data data Protein NEG mg/dL No No Apr 23 [Mass/vol informati informati 2017 7:50 ume] in on in on in PM Urine by source source Automated data data test strip Specific 1.005 - No Normal No Apr 23 gravity 1.030 informati informati 2017 7:50 of Urine on in on in PM source source data data Urobili 0.2 NEG E.U./dL No No Apr 23 nogen informa informa 2017 [Presen tion in tion in 7:50 PM ce] in source source Urine data data by Test strip
--- OUTSIDE RECORDS SUMMARY | 2017-10-03 02:02 | External Medical Summary Rpt ---
[...] than 35 weeks for positive results obtained [id number] weeks and 30 weeks,6 days of gestation [...]
[2017-10-03 05:48] LABS: LYMPH # 1.6 K/mm3 (0.7-4.5); LYMPH % 18.5 % (10-50.0)
[2017-10-03 05:50] LABS: HEMOGLOBIN 10.4 g/dL (12.2-16.2)
[2017-10-03 05:51] VITALS: BP 120/67
[2017-10-03 05:56] LABS: AMPHETAMINES/METAMPHETAMINES NEGATIVE ng/mL (<1000)
[2017-10-03] MEDS ORDERED: PRENATAL 191 TAB PO (05:57)
[2017-10-03] MEDS ORDERED: ZANTAC 150150 MG PO (05:58)
[2017-10-03 07:03] LABS: ABO BLOOD TYPE A; RH BLOOD TYPE POSITIVE
[2017-10-03 07:25] VITALS: BP 116/61
--- NOTE | 2017-10-03 08:56 | LABOR NOTE ---
Laboring Subjective Subjective Date 10/03/17 Time 0725 Subjective: Pt is having irregular contractions Laboring Objective Objective NST: Reactive Contractions: infrequent Cervical dilation: 3-4 Effacement: 90% Station: -2 Membranes are: Artificially ruptured (with clear fluid) Fetus monitoring? Yes Type: External Laboring Assessment Assessment Progressing? Yes Cephalopelvic disproportion? No Problem List: 1. 2. Normal delivery Laboring Plan Plan Anethesia for epidural? No Continue to labor down? Yes Plan for ? No Continue to monitor? Yes Start pushing? No at 0856
--- NOTE | 2017-10-03 09:02 | Delivery Note ---
Delivery note Delivery date: 10/03/17 Delivery time: 0840 Anesthesia: None Was labor medically induced? No Gestational age in weeks: 39 weeks Delivery prior to 39 weeks? No Sex: male score at one minute: 9 at 5 minutes: 9 Type of suction: bulb AF: Clear fluid LAC or MLE: LEFT labia Delivery procedure: Normal Delivery Delivery of placenta: spontaneous Clinical note She is a 27-year-old 6 para 3 aborta 2 who was 39 weeks gestational age. She was having occasional contractions and was found to be 3-4 cm in my office. As result of that we elected to augment her labor. She was started on IV oxytocin had her membranes ruptured. She progressed to full dilation and delivered spontaneously a liveborn male child at 8:40 AM on the morning of October 03, 2017. On delivery the head there was a loose nuchal cord which was easily reduced. This was followed by deliver the anterior shoulder and the rest of the infant's body atraumatically. The oropharynx and nasal fracture bulb suction. The baby cried spontaneously. The cord was doubly clamped and the infant was handed to Dr. Leo who assigned Apgars of 9 at 1 minute and 9 at 5 missed. We then obtained cord blood as well as cord pH. Using gentle traction on the cord and countertraction on the fundus I was able to easily deliver the placenta intact. It had a normal three-vessel cord. She had a small LEFT radial tear that was injected with 10 mL of 1 percent Xylocaine. This was then reapproximated using interrupted 3-0 Vicryl Rapide suture. There were no other vaginal or perineal tears. She has a positive blood, she is rubella immune and was group B streptococcus negative. She plans to breast-feed. Estimated blood loss was approximately 400 mL. at 0901
[2017-10-03 21:53] VITALS: BP 116/64
[2017-10-04 06:37] LABS: HEMOGLOBIN 9.4 g/dL (12.2-16.2)
--- NOTE | 2017-10-04 07:28 | ACUTE CARE PROGRESS NOTE (QUA) ---
Progress Notes Subjective Date 10/04/17 Time 0727 Note She seems to be doing very well. She is eating and drinking and ambulating. She is breast-feeding. Her lochia is normal. Patient/family reports: feeling better, no complaints Objective Findings Last VS-Temp:98.2 B/P:116/64 Pulse:101 Resp:18 SaO2: Last weight lbs:199 oz:0 K.266 Method:Floor Scales Laboratory Tests 10/04/17 0607: Hgb 9.4 L, Hct 28.6 L 10/03/17 0845: Cord Blood pH 7.45 Exam General appearance: normal appearance, alert, awake, no acute distress Reviewed: vital signs, lab results Assessment/Plan Problem List 1. Normal delivery Patient condition Improving, Stable Plan: continue current care This inpt stay is expected to cross 2 MNs from start of care Yes Comments: She is doing very well and we'll plan to send her home tomorrow. at 0738
[2017-10-04 19:30] VITALS: BP 123/68
--- NOTE | 2017-10-05 07:58 | Discharge Summary ---
Discharge Summary Admission date: 10/03/17 Discharge date: 10/05/17 Discharge diagnoses: Term , spontaneous vaginal delivery Clinical note: She is a 27-year-old 6 para 4 aborta 2 who was 39 weeks gestational age. She is feeling pressure and having occasional contractions. As result of this we elected to augment her labor. Course in hospital: She was started on IV oxytocin had her membranes ruptured. She progressed rapidly to full dilation and delivered spontaneously a liveborn male child at 8: 40 AM on the morning of October 03, 2017. The baby weighed 9 lbs. 1 oz. and was 20 inches long. He had Apgars of 9 at 1 minute and 9 at 5 minutes. She has done well and has remained afebrile throughout her hospitalization. She is eating and drinking and ambulating. She is rest feeding. She has been involved with social media manager due to her boyfriend's drug use and she will be seen by them today prior to discharge. She has a positive blood, she is rubella immune and was group B streptococcus negative. Her heater worker is Dr. Leo. Laboratory Tests 10/04/17 0607: Hgb 9.4 L, Hct 28.6 L 10/03/17 0845: Cord Blood pH 7.45 10/03/17 0535: MCH 26.8 L 10/03/17 0535: WBC 8.8, RBC 3.89 L, Hgb 10.4 L, Hct 32.3 L, MCV 83.0, RDW 15.3, Plt Count 161, MPV 11.2 H, Gran % 74.5, Gran # 6.6, Lymphocytes % 18.5, Monocytes % 6.3, Eosinophils % 0.5, Basophils % 0.2, Lymphocytes # 1.6, Monocytes # 0.6, Eosinophils # 0.0, Basophils # 0.0, PUBS MCHC 32.3, Antibody Screen NEGATIVE, Miscellaneous Test POSITIVE 10/03/17 0515: Opiates Screen NEGATIVE, Urine Methadone Screen NEGATIVE, Barbiturates NEGATIVE, Phencyclidine Screen NEGATIVE, Amphetamines Screen NEGATIVE, Benzodiazepines Screen NEGATIVE, Cocaine Screen NEGATIVE, Marijuana (THC) Screen NEGATIVE Plans for ongoing care: She is discharged home to follow-up with me in approximately 2 weeks' time. Discharge medications She'll continue with her vitamins and iron. We'll take [id number] analgesics. DC/follow-up instructions She was given the usual instructions with respect to limiting her activity, driving and sexual activity. Condition at discharge Stable and improved at 4663
--- NOTE | 2017-10-05 07:58 | Discharge Summary ---
Discharge Summary Admission date: 10/03/17 Discharge date: 10/05/17 Discharge diagnoses: Term , spontaneous vaginal delivery Clinical note: She is a 27-year-old 6 para 4 aborta 2 who was 39 weeks gestational age. She is feeling pressure and having occasional contractions. As result of this we elected to augment her labor. Course in hospital: She was started on IV oxytocin had her membranes ruptured. She progressed rapidly to full dilation and delivered spontaneously a liveborn male child at 8: 40 AM on the morning of October 03, 2017. The baby weighed 9 lbs. 1 oz. and was 20 inches long. He had Apgars of 9 at 1 minute and 9 at 5 minutes. She has done well and has remained afebrile throughout her hospitalization. She is eating and drinking and ambulating. She is rest feeding. She has been involved with social science teacher due to her boyfriend's drug use and she will be seen by them today prior to discharge. She has a positive blood, she is rubella immune and was group B streptococcus negative. Her credit counselor is Dr. Leo. Laboratory Tests 10/04/17 0607: Hgb 9.4 L, Hct 28.6 L 10/03/17 0845: Cord Blood pH 7.45 10/03/17 0535: MCH 26.8 L 10/03/17 0535: WBC 8.8, RBC 3.89 L, Hgb 10.4 L, Hct 32.3 L, MCV 83.0, RDW 15.3, Plt Count 161, MPV 11.2 H, Gran % 74.5, Gran # 6.6, Lymphocytes % 18.5, Monocytes % 6.3, Eosinophils % 0.5, Basophils % 0.2, Lymphocytes # 1.6, Monocytes # 0.6, Eosinophils # 0.0, Basophils # 0.0, PUBS MCHC 32.3, Antibody Screen NEGATIVE, Miscellaneous Test POSITIVE 10/03/17 0515: Opiates Screen NEGATIVE, Urine Methadone Screen NEGATIVE, Barbiturates NEGATIVE, Phencyclidine Screen NEGATIVE, Amphetamines Screen NEGATIVE, Benzodiazepines Screen NEGATIVE, Cocaine Screen NEGATIVE, Marijuana (THC) Screen NEGATIVE Plans for ongoing care: She is discharged home to follow-up with me in approximately 2 weeks' time. Discharge medications She'll continue with her vitamins and iron. We'll take [id number] analgesics. DC/follow-up instructions She was given the usual instructions with respect to limiting her activity, driving and sexual activity. Condition at discharge Stable and improved at 2679
== END 2017-10-05 14:45 | disposition home or self-care (01) | DRG 775 ==
LOC: OB 01:57
PROVIDERS: Nurse Practitioner Obstetrics & Gynecology
PROC: 0HQ9XZZ Repair Perineum Skin, External Approach (ICD-10-PCS; principal; 2017-10-03)
PROC: 10E0XZZ Delivery of Products of Conception, External Approach (ICD-10-PCS; principal; 2017-10-03)
DX: O70.0 First degree perineal laceration during delivery (principal); O69.81X0 Labor and delivery complicated by cord around neck, without compression, not applicable or unspecified; Z3A.39 39 weeks gestation of pregnancy; Z37.0 Single live birth